=== PATIENT | female | born 1995 | race Caucasian/White ===

== ENCOUNTER 2017-09-04 13:35 | Emergency (ER) | payer OTHER ==
[~2017-09-04] VITALS: Ht 157.5 cm; Wt 77.3 kg
[2017-09-04 13:36] VITALS: TEMP 98.1
[2017-09-04] MEDS ORDERED: NOVOLOG 100U100 U/M1 SQ (13:45)
[2017-09-04 14:01] VITALS: BP 120/75; PULSE 103
== END 2017-09-04 14:03 | disposition home or self-care (01) ==
LOC: COL.ER 13:35
DX: O9A.213 Injury, poisoning and certain other consequences of external causes complicating pregnancy, third trimester (principal); S39.012A Strain of muscle, fascia and tendon of lower back, initial encounter; Z3A.33 33 weeks gestation of pregnancy; V43.92XA Unspecified car occupant injured in collision with other type car in traffic accident, initial encounter

== ENCOUNTER 2017-09-28 08:54 | Outpatient (CLI) | payer OTHER ==
[~2017-09-28] VITALS: Ht 157.5 cm; Wt 80.0 kg
[~2017-09-28 08:54] MED LIST: NOVOLOG 100U100 U/M1 SQ
[2017-09-28] MEDS ORDERED: PRENATAL (09:22)
[2017-09-28 09:30] VITALS: BP 139/88; PULSE 85; TEMP 98.2
[2017-09-28 10:00] VITALS: BP 107/61; PULSE 72
== END 2017-09-28 10:05 | disposition home or self-care (01) ==
LOC: LDRO 08:54 → LDR 09:44 → LDRO 10:05
DX: O62.9 Abnormality of forces of labor, unspecified (principal); Z3A.36 36 weeks gestation of pregnancy
CPT/HCPCS: OP

== ENCOUNTER 2017-10-08 02:43 | Inpatient (IN) | payer OTHER ==
[~2017-10-08] VITALS: Ht 157.5 cm; Wt 81.4 kg
[2017-10-08] VITALS (63 sets, daily range): BP systolic 101–171; BP diastolic 66–107; PULSE 82–123; TEMP 97.6–98.7
[~2017-10-08 02:43] MED LIST changes: +PRENATAL
[2017-10-08 04:57] LABS: BASO # 0.1 (0.0-0.2); BASO % 0.6 % (0.0-2.0); EOS # 0.4 (0.0-0.7); EOS % 3.9 % (0-4.0); GRAN % 66.5 % (42.2-75.2); HEMATOCRIT 39.5 % (37.0-47.0); HEMOGLOBIN 14.4 g/dl (12.5-16.0); LYMPH # 1.6 (1.2-3.4); LYMPH % 17.3 % (20.0-51.0); MEAN CELL VOLUME 90 fl (80.0-100.0); MEAN CORPUSCULAR HEMOGLOBIN 33 pg (27.0-31.0); MEAN CORPUSCULAR HGB CONC 37 g/dl (33.0-37.0); MEAN PLATELET VOLUME 11.3 fl (7.4-10.4); MONO % 10.8 % (1.7-9.3); PLATELET COUNT 171 K/mm3 (130-400); RED BLOOD COUNT 4.39 M/mm3 (4.10-5.30); REDCELL DISTRIBUTION WIDTH-CV 13.9 % (11.5-14.5)
[2017-10-08] MEDS ORDERED: MOTRIN 800800 MG/TAB PO (15:16)
[2017-10-08] MEDS ORDERED: PERCOCET 325 MG1 TA2 PO (15:16)
[2017-10-09 04:46] VITALS: BP 112/72; PULSE 92; TEMP 98
[2017-10-09 07:45] VITALS: BP 114/68; PULSE 89; TEMP 98
[2017-10-09 08:11] LABS: HEMATOCRIT 25.5 % (37.0-47.0); HEMOGLOBIN 9.2 g/dl (12.5-16.0)
[2017-10-09 16:00] VITALS: BP 119/71; PULSE 105; TEMP 98.5
[2017-10-09 20:45] VITALS: BP 131/87; PULSE 113; TEMP 98.9
[2017-10-10 08:37] VITALS: BP 133/77; PULSE 110; TEMP 97.8
[2017-10-10 16:55] VITALS: BP 107/53; PULSE 103; TEMP 98.2
[2017-10-10 20:30] VITALS: BP 136/79; PULSE 115; TEMP 99.1
[2017-10-11 05:50] VITALS: BP 118/70; PULSE 97; TEMP 97.7
[2017-10-11 07:50] VITALS: BP 114/86; PULSE 98; TEMP 98.3
[2017-10-11 09:57] LABS: HEMATOCRIT 21.6 % (37.0-47.0); HEMOGLOBIN 7.7 g/dl (12.5-16.0)
== END 2017-10-11 12:10 | disposition home or self-care (01) | DRG 765 ==
LOC: LDRO 02:43 → OB 04:04 → LDR 04:04 → OB 18:30
PROVIDERS: Obstetrics & Gynecology
PROC: 10D00Z1 Extraction of Products of Conception, Low, Open Approach (ICD-10-PCS; principal; 2017-10-08)
DX: O62.1 Secondary uterine inertia (principal); O24.02 Pre-existing type 1 diabetes mellitus, in childbirth; D62 Acute posthemorrhagic anemia; O44.22 Partial placenta previa NOS or without hemorrhage, second trimester; E10.9 Type 1 diabetes mellitus without complications; Z79.4 Long term (current) use of insulin; Z3A.37 37 weeks gestation of pregnancy; Z37.0 Single live birth; Z22.330 Carrier of Group B streptococcus; Z96.41 Presence of insulin pump (external) (internal); O99.02 Anemia complicating childbirth; O26.893 Other specified pregnancy related conditions, third trimester
CPT/HCPCS: J0595; J0690; J1815; J1885; J2270; J2370; J2405; J2540; J2590; J7030; J7120

== ENCOUNTER 2017-10-13 18:13 | Observation (INO) | payer OTHER ==
[~2017-10-13 18:13] MED LIST changes: +MOTRIN 800800 MG/TAB PO; +PERCOCET 325 MG1 TA2 PO
[2017-10-13] MEDS ORDERED: LASIX 20MG TABL20 MG PO ×2 (21:36→22:08)
[2017-10-13] MEDS ORDERED: CIPRO 500MG TA500 MG PO ×2 (21:36→22:08)
[2017-10-13] MEDS ORDERED: ZITHROMAX500 M2 PO ×2 (21:37→22:07)
== END 2017-10-13 23:00 | disposition home or self-care (01) ==
LOC: MEDICAL 18:13
DX: J90 Pleural effusion, not elsewhere classified (principal); I42.9 Cardiomyopathy, unspecified; E10.9 Type 1 diabetes mellitus without complications; D64.9 Anemia, unspecified; Z96.41 Presence of insulin pump (external) (internal); Z79.4 Long term (current) use of insulin

== ENCOUNTER 2017-10-15 07:33 | Day surgery (SDC) | payer OTHER ==
[~2017-10-15] VITALS: Ht 157.5 cm; Wt 69.5 kg
[~2017-10-15 07:33] MED LIST changes: +CIPRO 500MG TA500 MG PO; +LASIX 20MG TABL20 MG PO; +ZITHROMAX500 M2 PO
[2017-10-15 08:11] LABS: MEAN CELL VOLUME 91 fl (80.0-100.0); MEAN CORPUSCULAR HGB CONC 34 g/dl (33.0-37.0); MEAN PLATELET VOLUME 9.1 fl (7.4-10.4); PLATELET COUNT 303 K/mm3 (130-400); RED BLOOD COUNT 3.17 M/mm3 (4.10-5.30); REDCELL DISTRIBUTION WIDTH-CV 15.5 % (11.5-14.5)
[2017-10-15 08:18] LABS: HEMOGLOBIN 9.8 g/dl (12.5-16.0); MEAN CORPUSCULAR HEMOGLOBIN 31 pg (27.0-31.0)
[2017-10-15 08:19] LABS: HEMATOCRIT 28.9 % (37.0-47.0)
[2017-10-15 08:23] LABS: PROTHROMBIN TIME 11.5 SECONDS (9.7-12.8)
[2017-10-15 08:26] LABS: ALBUMIN 2.9 gm/dL (3.5-5.0); BILIRUBIN,TOTAL 0.7 mg/dL (0.0-1.0); CALCIUM 8.2 mg/dL (8.4-10.2); CREATININE, serum 0.69 mg/dL (0.52-1.25); PARTIAL THROMBOPLASTIN TIME 32.6 SECONDS (26.0-37.0); POTASSIUM 4.2 mmol/L (3.4-5.0); TOTAL PROTEIN 5.7 gm/dL (6.4-8.2)
[2017-10-15 10:30] LABS: ANISOCYTOSIS 1+; BAND 11 % (0-10); EOSINOPHIL 4 % (0-4); LYMPHOCYTE 16 % (20.0-51.0); NEUTROPHILS 67 % (42.0-75.2)
[2017-10-15 14:13] VITALS: BP 132/92; PULSE 108
[2017-10-15 14:16] LABS: HEMATOCRIT 27.6 % (37.0-47.0); HEMOGLOBIN 9.4 g/dl (12.5-16.0)
[2017-10-15] MEDS ORDERED: PERCOCET 325 MG1 TA2 PO (16:07)
[2017-10-15] MEDS ORDERED: IBU800 M1 PO (16:07)
[2017-10-15] MEDS ORDERED: METHERGINE0.2 MG/TAB PO (17:11)
[2017-10-15 17:50] VITALS: BP 126/82; PULSE 82
[2017-10-15 18:23] VITALS: BP 124/85; PULSE 85
[2017-10-15 18:50] VITALS: BP 115/82; PULSE 96; TEMP 98.2
[2017-10-15 19:49] VITALS: BP 115/82; PULSE 94; TEMP 98.2
== END 2017-10-15 21:35 | disposition home or self-care (01) ==
LOC: COL.ER 07:33 → SDCO 13:32 → MEDICAL 13:33 → SDCO 21:35
PROVIDERS: Emergency Medicine
DX: O86.12 Endometritis following delivery (principal); N71.9 Inflammatory disease of uterus, unspecified; O72.1 Other immediate postpartum hemorrhage; R93.8 Abnormal findings on diagnostic imaging of other specified body structures; O90.81 Anemia of the puerperium; O24.03 Pre-existing type 1 diabetes mellitus, in the puerperium; E10.9 Type 1 diabetes mellitus without complications; Z96.41 Presence of insulin pump (external) (internal); Z79.4 Long term (current) use of insulin
CPT/HCPCS: OP; J1885; J2210; J2250; J2405; J2704; J3010; J7042

== ENCOUNTER 2019-09-15 17:25 | Outpatient (CLI) | payer OTHER ==
[~2019-09-15] VITALS: Ht 157.5 cm; Wt 74.1 kg
[~2019-09-15 17:25] MED LIST changes: +IBU800 M1 PO; +METHERGINE0.2 MG/TAB PO
--- NOTE | 2019-09-15 17:30 | NUR ---
Presents to labor and delivery. States has been having contractions the last two weeks. Says just wanted to make sure not in labor.
[2019-09-15 17:32] VITALS: BP 104/70; PULSE 115; TEMP 98.9
[2019-09-15] MEDS ORDERED: ASPIRIN 81M81 MG/TA2 PO (17:58)
[2019-09-15 18:00] VITALS: BP 111/76; PULSE 105
--- NOTE | 2019-09-15 18:50 | NUR ---
Discharge instructions given, verbalizes understanding.
== END 2019-09-15 18:50 | disposition home or self-care (01) ==
LOC: LDRO 17:25 → LDR 17:30 → LDRO 17:30 → LDR 18:50
DX: O99.89 Other specified diseases and conditions complicating pregnancy, childbirth and the puerperium (principal); M54.9 Dorsalgia, unspecified; Z3A.32 32 weeks gestation of pregnancy
CPT/HCPCS: OP

== ENCOUNTER 2019-09-27 17:45 | Outpatient (CLI) | payer OTHER ==
[~2019-09-27] VITALS: Ht 157.5 cm; Wt 77.3 kg
[~2019-09-27 17:45] MED LIST changes: +ASPIRIN 81M81 MG/TA2 PO
--- NOTE | 2019-09-27 17:45 | NUR ---
Patient ambulatory onto unit with report of cramping, back pain, vaginal pressure, and decreased movement. Patient oriented to room, changes into gown, plan of care discussed. EFMs on, VS taken. SVE per Jeanine KOTHARI. Assessment completed. Will notify for further orders.
[2019-09-27 17:55] VITALS: BP 134/74; PULSE 116; TEMP 98.6
[2019-09-27 18:15] VITALS: PULSE 90
--- NOTE | 2019-09-27 18:15 | NUR ---
Report to Dary RN to assume care of patient at this time.
--- NOTE | 2019-09-27 18:50 | NUR ---
SVE unchanged /-3, ballotable, membrabes intact. Pt ok with plan to discharge home. 1854 - discharge instructions reviewed and return precautions explained. Pt verbalized understanding. Pt seen ambulating off unit.
== END 2019-09-27 18:55 | disposition home or self-care (01) ==
LOC: LDRO 17:45 → LDR 17:46 → LDRO 18:55
DX: O36.8130 Decreased fetal movements, third trimester, not applicable or unspecified (principal); Z3A.34 34 weeks gestation of pregnancy
CPT/HCPCS: OP

== ENCOUNTER 2019-10-07 15:45 | Outpatient (CLI) | payer OTHER ==
[~2019-10-07] VITALS: Ht 157.5 cm; Wt 81.8 kg
--- NOTE | 2019-10-07 15:50 | NUR ---
Pt arrives on unit ambulatory with spouse. States ctx since last night that have become more painful for 2 hours. Denies LOF, vaginal bleeding and reports GFM. Changed into clean gown. EFM and toco applied. VSS. SVE per this RN /2. Admission assessment completed. Pt updated on POC. Bed locked in low position. Call light within reach. No questions or concerns at this time.
[2019-10-07 16:30] VITALS: BP 142/85; PULSE 71
[2019-10-07 17:00] VITALS: BP 130/86; PULSE 88
[2019-10-07 17:27] VITALS: BP 132/77; PULSE 84
--- NOTE | 2019-10-07 17:27 | NUR ---
Patient off monitor to change clothes. Discharge instructions given and patient agrees with plan and understands. 1733: Patient ambulatory off unit with spouse.
== END 2019-10-07 17:15 | disposition home or self-care (01) ==
LOC: LDR 15:45 → LDRO 15:45
DX: O62.9 Abnormality of forces of labor, unspecified (principal); Z3A.36 36 weeks gestation of pregnancy
CPT/HCPCS: OP

== ENCOUNTER 2019-10-07 22:07 | Emergency (ER) | payer OTHER ==
[~2019-10-07] VITALS: Ht 157.5 cm; Wt 81.8 kg
[2019-10-07 22:34] VITALS: TEMP 97.7
[2019-10-07 23:48] LABS: COLLECTION METHOD CLEAN CATCH
[2019-10-07 23:51] LABS: BASO % 0.4 % (0.0-2.0); EOS # 0.1 (0.0-0.7); EOS % 1.4 % (0-4.0); GRAN # 5.9 (1.4-6.5); GRAN % 65.2 % (42.2-75.2); LYMPH # 1.9 (1.2-3.4); LYMPH % 20.9 % (20.0-51.0); MEAN CELL VOLUME 79 fl (80.0-100.0); MEAN CORPUSCULAR HEMOGLOBIN 25 pg (27.0-31.0); MEAN CORPUSCULAR HGB CONC 32 g/dl (33.0-37.0); MEAN PLATELET VOLUME 11.3 fl (7.4-10.4); MONO % 11.3 % (1.7-9.3); PLATELET COUNT 202 K/mm3 (130-400); REDCELL DISTRIBUTION WIDTH-CV 14.4 % (11.5-14.5)
[2019-10-08 00:01] LABS: CALCIUM 8.6 mg/dL (8.4-10.2); CREATININE, serum 0.71 (0.52-1.25); HEMATOCRIT 34.8 % (37.0-47.0); POTASSIUM 3.8 mmol/L (3.4-5.0); TOTAL PROTEIN 6.4 gm/dL (6.4-8.2); URIC ACID 4.9 mg/dL (2.5-6.2)
[2019-10-08 00:02] LABS: ALBUMIN 3.3 gm/dL (3.5-5.0); BILIRUBIN,TOTAL 0.6 mg/dL (0.0-1.0)
[2019-10-08 00:04] LABS: PH 6 (5-8); PROTHROMBIN TIME 11.2 SECONDS (9.7-12.8); URINE APPEARANCE Clear; URINE BILIRUBIN Negative (NEGATIVE); URINE BLOOD Negative (NEGATIVE); URINE COLOR Yellow; URINE GLUCOSE 3+ (NEGATIVE); URINE KETONE Negative (NEGATIVE); URINE LEUKOCYTE ESTERASE Negative (NEGATIVE); URINE NITRATE Negative (NEGATIVE); URINE PROTEIN(semi-quant) 1+ (NEGATIVE); URINE UROBILINOGEN Negative (NEGATIVE)
[2019-10-08 00:06] LABS: PARTIAL THROMBOPLASTIN TIME 27.2 SECONDS (26.0-37.0)
[2019-10-08 00:15] LABS: SQUAMOUS EPITHELIAL 0-2 /hpf; URINE RBC 0-2 /hpf
[2019-10-08 00:16] LABS: MUCOUS Present /lpf
--- NOTE | 2019-10-08 00:20 | NUR ---
Pt seen in the ED for complaints of right leg swelling. Pt 36 weeks G2L[address] pt of Dr. Mata. Pt reports inconsistent contractions all day with some increasing vaginal pressure with contractions. Pt denies any leaking of fluid and/or vaginal bleeding and reports normal movement. EFM and toco monitors started. See EFM charting for details. Ctx pattern every 4-6 minutes. SVE by this RN /-3. Encourage fluid intake, return precautions given and keep follow up appointments.
[2019-10-08 01:24] VITALS: BP 128/95; PULSE 94
== END 2019-10-08 01:37 | disposition home or self-care (01) ==
LOC: COL.ER 22:07
PROVIDERS: Emergency Medicine
DX: O12.03 Gestational edema, third trimester (principal); O24.013 Pre-existing type 1 diabetes mellitus, in pregnancy, third trimester; Z3A.36 36 weeks gestation of pregnancy; Z79.4 Long term (current) use of insulin
CPT/HCPCS: J1650

== ENCOUNTER → 2019-10-08 | Outpatient (CLI) | payer OTHER | LOC: COL.RAD | DX: M79.89 Other specified soft tissue disorders (principal); R79.1 Abnormal coagulation profile ==

== ENCOUNTER 2019-10-11 16:52 | Inpatient (IN) | payer OTHER ==
[~2019-10-11] VITALS: Ht 157.5 cm; Wt 81.8 kg
[2019-10-11] VITALS (21 sets, daily range): BP systolic 110–174; BP diastolic 70–103; PULSE 57–107; TEMP 98
--- NOTE | 2019-10-11 16:50 | NUR ---
PATIENT TO LR 4 FOR CHECK. PATIENT COMPLAINS OF CONTRACTIONS, PATIENT DENIES BLEEDING OR LEAKING OF FLUID. PATIENT CHANGED INTO GOWN, ON EFM, VITALS OBTAINED, SVE BY Tamanna NARAYANAN, RN -. ASSESMENT COMPLETE. PATIENT HERE WITH . PATIENT AND WORRIED ABOUT HAVING A SECTION WITH DR HERNANDEZ, LAST TIME DIDNT GOT WELL STATES . PATIENT REASSURRED THAT DR BARKER WILL ALSO BE IN ATTENDANCE IF C/S TONIGHT. Tamanna GUTIÉRREZ TALKED WITH AND PATIENT ABOUT RISK/ BENEFITS OF NOW WITH
[2019-10-11 18:18] LABS: COLLECTION METHOD CLEAN CATCH; HEMOGLOBIN 10.8 g/dl (12.5-16.0); MEAN CELL VOLUME 78 fl (80.0-100.0); MEAN CORPUSCULAR HEMOGLOBIN 25 pg (27.0-31.0); MEAN CORPUSCULAR HGB CONC 32 g/dl (33.0-37.0); MEAN PLATELET VOLUME 11.2 fl (7.4-10.4); PLATELET COUNT 186 K/mm3 (130-400); RED BLOOD COUNT 4.32 M/mm3 (4.10-5.30); REDCELL DISTRIBUTION WIDTH-CV 14.4 % (11.5-14.5)
[2019-10-11 18:19] LABS: HEMATOCRIT 33.7 % (37.0-47.0)
[2019-10-11 18:29] LABS: ALBUMIN 3.1 gm/dL (3.5-5.0); BILIRUBIN,TOTAL 0.7 mg/dL (0.0-1.0); CREATININE, serum 0.86 (0.52-1.25); POTASSIUM 3.9 mmol/L (3.4-5.0); TOTAL PROTEIN 6.1 gm/dL (6.4-8.2)
[2019-10-11 19:14] LABS: AMORPHOUS CRYSTAL Present /uL; PH 6 (5-8); SQUAMOUS EPITHELIAL None Seen /hpf; URINE APPEARANCE Hazy; URINE BACTERIA Rare /hpf; URINE BILIRUBIN Negative (NEGATIVE); URINE BLOOD Negative (NEGATIVE); URINE COLOR Yellow; URINE GLUCOSE Negative (NEGATIVE); URINE KETONE Trace (NEGATIVE); URINE LEUKOCYTE ESTERASE Negative (NEGATIVE); URINE NITRATE Negative (NEGATIVE); URINE PROTEIN(semi-quant) 2+ (NEGATIVE); URINE RBC 0-2 /hpf; URINE UROBILINOGEN Negative (NEGATIVE); URINE WBC 0-2 /hpf
--- NOTE | 2019-10-11 19:53 | NUR ---
1940- PT CLIPPED AND SCRUBBED. 1952- PT OFF MONITORS, TO OR FOR REPEAT C/S.
--- NOTE | 2019-10-11 21:05 | NUR ---
Pt tested own BS in PACU. BS 145.
[2019-10-12 00:45] VITALS: BP 140/88; PULSE 57
[2019-10-12 04:00] VITALS: BP 158/93; PULSE 54; TEMP 98.1
--- NOTE | 2019-10-12 04:15 | NUR ---
called and updated on pts elevated BP's and low urine output. Orders received. See physican notification. Pt in nursery visiting infant and updated on new orders. Denies questions at this time 3952: Pt took own BS 193 noted, pt states she took 2 unites of insulin.
[2019-10-12 07:30] VITALS: BP 147/92; PULSE 63; TEMP 97.7
--- NOTE | 2019-10-12 07:30 | NUR ---
Rests in bed, alert. Percocet 5/325 mg two given per request and as ordered.
--- NOTE | 2019-10-12 08:30 | NUR ---
Rests in bed, eating breakfast. 0920 Mylicon 160 mg given per request and as ordered.
[2019-10-12 09:25] LABS: BASO % 0.4 % (0.0-2.0); EOS # 0.1 (0.0-0.7); EOS % 0.5 % (0-4.0); GRAN # 6.6 (1.4-6.5); GRAN % 71.9 % (42.2-75.2); LYMPH # 1.3 (1.2-3.4); LYMPH % 14.2 % (20.0-51.0); MEAN CELL VOLUME 79 fl (80.0-100.0); MEAN CORPUSCULAR HGB CONC 32 g/dl (33.0-37.0); MEAN PLATELET VOLUME 11.3 fl (7.4-10.4); MONO # 1.1 (0.1-0.6); MONO % 11.9 % (1.7-9.3); PLATELET COUNT 142 K/mm3 (130-400); RED BLOOD COUNT 3.51 M/mm3 (4.10-5.30); REDCELL DISTRIBUTION WIDTH-CV 14.6 % (11.5-14.5)
[2019-10-12 09:26] LABS: HEMATOCRIT 27.6 % (37.0-47.0); HEMOGLOBIN 8.9 g/dl (12.5-16.0); MEAN CORPUSCULAR HEMOGLOBIN 25 pg (27.0-31.0)
[2019-10-12 09:33] LABS: ALBUMIN 2.3 gm/dL (3.5-5.0); BILIRUBIN,TOTAL 0.4 mg/dL (0.0-1.0); CALCIUM 8.1 mg/dL (8.4-10.2); CREATININE, serum 1.18 (0.52-1.25); TOTAL PROTEIN 4.8 gm/dL (6.4-8.2)
--- NOTE | 2019-10-12 10:20 | NUR ---
Rests in bed, alert. Ibuprofen 800 mg given as ordered.
[2019-10-12 11:30] VITALS: BP 143/90; PULSE 62; TEMP 98
--- NOTE | 2019-10-12 11:45 | NUR ---
Rests in bed, alert. Visits with Dr. Romero. Percocet 5/325 mg two given per request and as ordered.
--- NOTE | 2019-10-12 12:30 | NUR ---
Ambulates to the bathroom. Ferguson catheter taken out. Uma-care given. Ambulates short distance, tolerates well. To nursery via wheel chair to see baby.
--- NOTE | 2019-10-12 13:50 | NUR ---
Trandate 100 mg one tab given as ordered.
[2019-10-12 16:40] VITALS: BP 118/75; PULSE 76; TEMP 97.7
--- NOTE | 2019-10-12 16:40 | NUR ---
Rests in bed, alert. Percocet 5/325 mg two given per request and as ordered.
[2019-10-12 19:00] VITALS: BP 121/79; PULSE 74; TEMP 97.2
[2019-10-13 00:30] VITALS: BP 119/70; PULSE 97; TEMP 97.7
[2019-10-13 06:55] LABS: MEAN CELL VOLUME 80 fl (80.0-100.0); MEAN CORPUSCULAR HGB CONC 32 g/dl (33.0-37.0); MEAN PLATELET VOLUME 11.5 fl (7.4-10.4); PLATELET COUNT 168 K/mm3 (130-400); RED BLOOD COUNT 2.88 M/mm3 (4.10-5.30); REDCELL DISTRIBUTION WIDTH-CV 14.8 % (11.5-14.5)
[2019-10-13 06:56] LABS: HEMOGLOBIN 7.3 g/dl (12.5-16.0); MEAN CORPUSCULAR HEMOGLOBIN 25 pg (27.0-31.0)
[2019-10-13 07:08] LABS: ALBUMIN 2.1 gm/dL (3.5-5.0); BILIRUBIN,TOTAL 0.2 mg/dL (0.0-1.0); CALCIUM 7.6 mg/dL (8.4-10.2); CREATININE, serum 0.84 (0.52-1.25); POTASSIUM 3.9 mmol/L (3.4-5.0); TOTAL PROTEIN 4.4 gm/dL (6.4-8.2)
[2019-10-13 08:20] VITALS: BP 118/77; PULSE 72; TEMP 98.1
[2019-10-13] MEDS ORDERED: FERROUS SU325 MG/TAB PO (09:46)
[2019-10-13] MEDS ORDERED: TRANDATE 100MG100 MG PO (09:46)
[2019-10-13] MEDS ORDERED: IBU800 M1 PO (09:46)
[2019-10-13] MEDS ORDERED: PERCOCET 325 MG1 TA2 PO (09:47)
--- NOTE | 2019-10-13 09:51 | NUR ---
Initial visit; Parents thanked Supervisor [employer] for offering congratulations for the of their son. Supervisor [employer] offered God's blessings and thanked family for choosing [facility].
[2019-10-13 16:03] VITALS: BP 122/76; PULSE 78; TEMP 98.2
[2019-10-13 19:43] VITALS: BP 124/84; PULSE 89; TEMP 97.6
[2019-10-14] VITALS (24 sets, daily range): BP systolic 122–146; BP diastolic 74–89; PULSE 65–87; TEMP 97.7–98.9
--- NOTE | 2019-10-14 07:35 | NUR ---
Patient reports blood glucose 94 this morning via insulin pump.
[2019-10-14 07:51] LABS: MEAN CELL VOLUME 81 fl (80.0-100.0); MEAN CORPUSCULAR HGB CONC 32 g/dl (33.0-37.0); MEAN PLATELET VOLUME 10.5 fl (7.4-10.4); PLATELET COUNT 185 K/mm3 (130-400); RED BLOOD COUNT 2.66 M/mm3 (4.10-5.30); REDCELL DISTRIBUTION WIDTH-CV 15.1 % (11.5-14.5)
[2019-10-14 07:55] LABS: HEMATOCRIT 21.5 % (37.0-47.0); HEMOGLOBIN 6.8 g/dl (12.5-16.0); MEAN CORPUSCULAR HEMOGLOBIN 26 pg (27.0-31.0)
--- NOTE | 2019-10-14 10:45 | NUR ---
blood glucose per patient pump 75.
--- NOTE | 2019-10-14 16:10 | NUR ---
Blood glucose per patient pump 125.
[2019-10-14 21:25] LABS: MEAN CELL VOLUME 81 fl (80.0-100.0); MEAN CORPUSCULAR HGB CONC 32 g/dl (33.0-37.0); PLATELET COUNT 222 K/mm3 (130-400); RED BLOOD COUNT 3.65 M/mm3 (4.10-5.30); REDCELL DISTRIBUTION WIDTH-CV 14.9 % (11.5-14.5)
[2019-10-14 21:28] LABS: HEMATOCRIT 29.4 % (37.0-47.0); HEMOGLOBIN 9.5 g/dl (12.5-16.0); MEAN CORPUSCULAR HEMOGLOBIN 26 pg (27.0-31.0)
[2019-10-15 07:00] VITALS: BP 145/84; PULSE 77; TEMP 98.2
[2019-10-15 08:10] LABS: MEAN CELL VOLUME 82 fl (80.0-100.0); MEAN CORPUSCULAR HGB CONC 32 g/dl (33.0-37.0); MEAN PLATELET VOLUME 9.8 fl (7.4-10.4); PLATELET COUNT 253 K/mm3 (130-400); RED BLOOD COUNT 3.78 M/mm3 (4.10-5.30)
[2019-10-15 08:24] LABS: HEMOGLOBIN 9.8 g/dl (12.5-16.0); MEAN CORPUSCULAR HEMOGLOBIN 26 pg (27.0-31.0)
[2019-10-15 10:56] LABS: BAND 3 % (0-10); EOSINOPHIL 6 % (0-4); LYMPHOCYTE 23 % (20.0-51.0); METAMYELOCYTE 1 % (0-0); NEUTROPHILS 63 % (42.0-75.2); PLATELET ESTIMATE NORMAL (NORMAL)
[2019-10-15 11:00] VITALS: BP 134/86; PULSE 72; TEMP 98.1
[2019-10-15 13:45] VITALS: BP 132/82; PULSE 76; TEMP 98.7
== END 2019-10-15 15:45 | disposition home or self-care (01) | DRG 786 ==
LOC: LDRO 16:52 → LDR 17:47 → LDRO 19:10 → OB 19:12 → LDR 19:12 → OB 23:32
PROVIDERS: Obstetrics & Gynecology; ADMIT Student in an Organized Health Care Education/Training Program
PROC: 10D00Z1 Extraction of Products of Conception, Low, Open Approach (ICD-10-PCS; principal; 2019-10-12)
DX: O60.14X0 Preterm labor third trimester with preterm delivery third trimester, not applicable or unspecified (principal); O24.02 Pre-existing type 1 diabetes mellitus, in childbirth; D62 Acute posthemorrhagic anemia; O14.04 Mild to moderate pre-eclampsia, complicating childbirth; O90.81 Anemia of the puerperium; Z37.0 Single live birth; E10.9 Type 1 diabetes mellitus without complications; O36.63X0 Maternal care for excessive fetal growth, third trimester, not applicable or unspecified; O99.824 Streptococcus B carrier state complicating childbirth; Z3A.36 36 weeks gestation of pregnancy
CPT/HCPCS: J0690; J1885; J1940; J2210; J2250; J2370; J2405; J2590; J7030; J7050; J7120; P9016